=== PATIENT | male | born 1955 | race Caucasian/White ===

== ENCOUNTER 2019-02-20 10:59 | Emergency (ER) | payer MEDICAID ==
--- NOTE | 2019-02-20 11:50 | EDM.PDOC ---
ED HPI GENERAL MEDICAL PROBLEM - General Chief Complaint: General Stated Complaint: FELL DOWN, WEAK AND CAN'T WALK Time Seen by Provider: 02/20/19 11:05 Source of Information: Reports: Patient, Family - History of Present Illness INITIAL COMMENTS - FREE TEXT/NARRATIVE: Patient daughter state upon getting up approximately 1 hour prior to arrival of the bed phone trying to stand up the patient could not secondary to weakness and collapsed on the floor. Patient states his legs are not working and there does week. He has had this same type of episode twice for the first 1 occurred about in December while at the [place] in [place]. He has seen neurology before with an MRI of his head recently but does not know the results at this time. He has no other complaints at this time. He also states he has not taken his daily blood pressure medicines yet this morning but he has no end organ signs or symptoms or complaints. He denies any loss of consciousness numbness or tingling loss of bowel or bladder no chest pain nausea vomiting states he has not had anything to eat yet this morning as well Duration: Hour(s): Severity: Mild Context: Denies: Activity Associated Symptoms: Reports: No Other Symptoms, Weakness, Other (Weakness over the lower extremities denies any upper extremity or generalized weakness). Denies: Confusion, Chest Pain, Cough, cough w sputum, Diaphoresis, Fever/Chills , Headaches, Loss of Appetite, Nausea/Vomiting, Shortness of Breath, Syncope - Related Data Allergies Allergy/AdvReac Type Severity Reaction Status Date / Time Penicillins Allergy Cannot Verified 08/07/14 13:37 Remember Sulfa (Sulfonamide Allergy Cannot Verified 08/07/14 13:37 Antibiotics) Remember Home Meds: Home Meds . [Unable to Verify Home Med List] 08/07/14 [History] ED ROS GENERAL - Review of Systems Review Of Systems: See Below Constitutional: Reports: No Symptoms, Weakness. Denies: Fever, Chills, Malaise , Fatigue, Night Sweats, Diaphoresis, Decreased Appetite, Weight Loss HEENT: Reports: No Symptoms Respiratory: Reports: No Symptoms Cardiovascular: Reports: No Symptoms Endocrine: Reports: No Symptoms GI/Abdominal: Reports: No Symptoms. Denies: Bloody Stool, Hematemesis, Nausea, Vomiting : Reports: No Symptoms. Denies: Discharge Musculoskeletal: Denies: Back Pain, Muscle Pain, Muscle Stiffness Skin: Reports: No Symptoms Neurological: Reports: Difficulty Walking, Weakness, Gait Disturbance. Denies: No Symptoms, Confusion, Dizziness, Headache, Numbness, Syncope, Tingling Psychiatric: Reports: No Symptoms Hematologic/Lymphatic: Reports: No Symptoms Immunologic: Reports: No Symptoms ED EXAM, GENERAL - Physical Exam Exam: See Below Exam Limited By: No Limitations General Appearance: Alert, WD/WN, No Apparent Distress Eye Exam: Bilateral Eye: PERRL (EOMI was intact) Ears: Normal External Exam, Hearing Grossly Normal, Normal TMs Nose: Normal Inspection Throat/Mouth: Normal Inspection, Normal Lips, Normal Oropharynx, Normal Voice, No Airway Compromise Head: Atraumatic, Normocephalic Neck: Normal Inspection, Supple, Non-Tender, Full Range of Motion Respiratory/Chest: No Respiratory Distress, Lungs Clear, Normal Breath Sounds, No Accessory Muscle Use Cardiovascular: Normal Peripheral Pulses, Regular Rate, Rhythm, No Edema, No Gallop, No JVD GI/Abdominal: Normal Bowel Sounds, Soft, Non-Tender, No Organomegaly, No Distention, Pelvis Stable Back Exam: Full Range of Motion Extremities: Normal Inspection, Normal Range of Motion, Non-Tender, No Pedal Edema, Normal Capillary Refill, Other (Patient had bilateral 5/ 5 upper extremity lower extremity strength with full range of motion of all extremities patient with lower extremities was able to lift himself off the bed when pressing down for strength testing with lower extremities 2+ DTR normal dorsiflexion and plantar flexion). No: Pedal Edema Neurological: Alert, Oriented, CN II-XII Intact, Normal Cognition, Normal Reflexes, No Motor/Sensory Deficits Psychiatric: Normal Affect, Normal Mood Skin Exam: Warm, Dry, Intact, Normal Color, No Rash Course - Vital Signs Text/Narrative:: CBC BMP UA EKG was ordered lab work UA and EKG was all within normal limits EKG is normal sinus rhythm no acute findings patient was able to stand with assistance and walk to the bathroom to obtain UA Spoke with patient and family in regards to labs and need for follow-up daughter states has a neurology appointment 10 March they are both willing to get a prescription for a quad walker and are okay with being discharged home and follow up primary care provider - Orders/Labs/Meds Orders: Active Orders 24 hr Category Date Time Status EKG 12 Lead [EKG Documentation Completion] [RC] STAT Care 02/20/19 11:32 Active Naproxen [Naprosyn] Med 02/20/19 12:36 Active 500 mg PO Q12HR PRN Medication Orders Naproxen (Naprosyn) 500 mg PO Q12HR PRN PRN Reason: take daily chronic back pain Labs: Laboratory Tests 02/20/19 02/20/19 02/20/19 Range/Units 12:00 12:00 12:15 WBC 10.6 H (4.0-10.0) x10^3/uL RBC 4.71 (4.5-6.0) x10^6/uL Hgb 14.3 (14.0-18.0) g/dL Hct 41.5 (40.0-52.0) % MCV 88.1 (78.0-93.0) fL MCH 30.4 (26.0-32.0) pg MCHC 34.5 (32.0-36.0) g/dL RDW Coeff of [place] 13.1 (10.0-15.0) % Plt Count 168 (130-400) x10^3/uL Neut % (Auto) 71.5 (50.0-80.0) % Lymph % (Auto) 18.6 L (25.0-50.0) % [place] % (Auto) 9.1 (2.0-11.0) % Eos % (Auto) 0.5 (0.0-4.0) % Baso % (Auto) 0.3 (0.2-1.2) % Sodium 142 (136-145) mmol/L Potassium 3.5 (3.5-5.1) mmol/L Chloride 102 (98-107) mmol/L Carbon Dioxide 29 (21-32) mmol/L Anion Gap 14.5 (10-20) mmol/L BUN 16 (7-18) mg/dL Creatinine 0.8 (0.70-1.30) mg/dL Est Cr Clr Drug Dosing TNP Estimated GFR (MDRD) > 60 Glucose 122 H (74-106) mg/dL Calcium 9.0 (8.5-10.1) mg/dL Urine Color Dark yellow H (YELLOW) Urine Appearance Turbid H (CLEAR) Urine pH 6.5 (5.0-8.0) Ur Specific [place] 1.015 Urine Protein Negative (NEGATIVE) mg/dL Urine Glucose (UA) Negative (NEGATIVE) mg/dL Urine Ketones Negative (NEGATIVE) mg/dL Urine Occult Blood Trace-lysed H (NEGATIVE) Urine Nitrite Negative (NEGATIVE) Urine Bilirubin Negative (NEGATIVE) Urine Urobilinogen 0.2 (0.2) EU/dL Ur Leukocyte Esterase Moderate H (NEGATIVE) Urine RBC 0-5 (NOT SEEN) /HPF Urine WBC 20-30 H (NOT SEEN) /HPF Urine WBC Clumps Few Ur Squamous Epith Cells Rare (NEGATIVE) /HPF Urine Bacteria Few H (NEGATIVE) /HPF Urine Mucus Few H (NEGATIVE) /LPF Urine Yeast (Budding) Many Meds: Medications Generic Name Dose Route Start Last Admin Trade Name Freq PRN Reason Stop Dose Admin Naproxen 500 mg 02/20/19 12:36 Naprosyn PO Q12HR PRN take daily chronic back pain Departure - Departure Time of Disposition: 12:50 Disposition: Home, Self-Care 01 Condition: Fair Clinical Impression: Lower extremity weakness - Discharge Information *PRESCRIPTION DRUG MONITORING PROGRAM REVIEWED*: No *COPY OF PRESCRIPTION DRUG MONITORING REPORT IN PATIENT MARY ANNE: No Forms: ED Department Discharge - Problem List & Annotations (1) Lower extremity weakness SNOMED Code(s): 613546526 Code(s): R29.898 - [facility] SYMPTOMS AND SIGNS INVOLVING THE MUSCULOSKELETAL SYSTEM Status: Acute Current Visit: Yes - My Orders Last 24 Hours: My Active Orders 02/20/19 11:32 EKG 12 Lead [EKG Documentation Completion] [RC] STAT 02/20/19 12:36 Naproxen [Naprosyn] 500 mg PO Q12HR PRN - Assessment/Plan Last 24 Hours: My Active Orders 02/20/19 11:32 EKG 12 Lead [EKG Documentation Completion] [RC] STAT 02/20/19 12:36 Naproxen [Naprosyn] 500 mg PO Q12HR PRN
[2019-02-20 12:18] LABS: CHLORIDE,CL 102 mmol/L (98-107); SODIUM,NA 142 mmol/L (136-145)
[2019-02-20 12:19] LABS: ANION GAP 14.5 mmol/L (10-20)
[2019-02-20] MEDS ORDERED: Naproxen 500 MG Tab PO PRN (12:36)
[2019-02-20 16:39] VITALS: BP 137/78; PULSE 80
== END 2019-02-20 13:25 | disposition home or self-care (01) ==
LOC: VM.ED 10:59
DX: M62.81 Muscle weakness (generalized) (principal); Z88.0 Allergy status to penicillin; Z88.2 Allergy status to sulfonamides
CPT/HCPCS: 36415; 80048; 81001; 85025; 93005; 99285-25

== ENCOUNTER 2020-11-23 12:22 | Emergency (ER) | payer MEDICAID ==
[2020-11-23] MEDS ORDERED: Sodium Chloride 0.9% 10 ML Syringe FLUSH PRN (13:17)
--- NOTE | 2020-11-23 13:29 | EDM.PDOC ---
ED HPI GENERAL MEDICAL PROBLEM - General Chief Complaint: Neurological Problem Stated Complaint: FEVER AND NOT RESPONDING TO STAFF Time Seen by Provider: 11/23/20 12:45 Source of Information: Reports: Patient, Family - History of Present Illness INITIAL COMMENTS - FREE TEXT/NARRATIVE: Jamar is a 64 y/o male who is brought to the ER by his daughters for a fever and decreased mental status. He has a hx of Progressive Supranuclear Palsy and was diagnosed 2 years ago, however his daughters have been providing almost total care for him for the last 6 years. He was fine last night when he was put to bed, but his daughter found him this AM with the left side of his face swollen and both of his eyes quite swollen. He has an excessive amount of drooling noted to have happened through the night. He was given Benadryl and APAP at home for the eye swelling and the fever. He also complained of a headache and did not have much of an appetite this AM. His daughters also noted that his left lower leg seemed to be a bit reddened, but he also awoke with petechiae like rash to his lower legs and ankles that appeared this AM. He has not had a COVID vaccine to date. The last few days he as had more problems with incontinence and not being able to help himself with ADLs as much as he had been previously. - Related Data Allergies Allergy/AdvReac Type Severity Reaction Status Date / Time Penicillins Allergy Cannot Verified 08/07/14 13:37 Remember Sulfa (Sulfonamide Allergy Cannot Verified 08/07/14 13:37 Antibiotics) Remember Home Meds: Home Meds . [Unable to Verify Home Med List] 08/07/14 [History] Review of Systems - Review of Systems Review Of Systems: See Below Constitutional: Reports: Fever, Weakness Eyes: Reports: Other (Swellign around eyelids) Ears: Reports: No Symptoms Nose: Reports: No Symptoms Mouth/Throat: Reports: Other (INcreased drooling) Respiratory: Reports: No Symptoms Cardiovascular: Reports: No Symptoms GI/Abdominal: Reports: Decreased Appetite Genitourinary: Reports: Incontinence Skin: Reports: Rash (Erythema and rash to lower legs) Neurological: Reports: Confusion, Headache, Weakness ED EXAM, GENERAL - Physical Exam Exam: See Below (Adult male, appears older than stated age, lying quietly on ER cart. He will open eyes and answer a few questions, but he does look ill.) Eye Exam: Bilateral Eye: PERRL, Other (Eyelids are swollen) Ears: Normal External Exam, Normal Canal, Hearing Grossly Normal, Normal TMs Nose: Normal Inspection, Normal Mucosa Throat/Mouth: Normal Voice, Other (Tongue dry) Head: Atraumatic, Facial Swelling (left side of face more swollen than the right) Neck: Normal Inspection, Supple, Non-Tender Respiratory/Chest: No Respiratory Distress, Lungs Clear, Chest Non-Tender Cardiovascular: Normal Peripheral Pulses, Regular Rate, Rhythm, No Murmur GI/Abdominal: Normal Bowel Sounds, Soft, Non-Tender, No Distention (Male) Exam: Deferred Rectal (Males) Exam: Deferred Back Exam: Normal Inspection Extremities: Other (Note erythema to bilateral lower legs-L>R, also note petchiae like rash to both lower legs and feet. Left leg is more edeamtous than the right.) Neurological: Alert, CN II-XII Intact, Slow to Respond Psychiatric: Flat Affect Skin Exam: Dry, Intact Lymphatic: No Adenopathy #1 Interpretation EKG Date: 11/23/20 Time: 12:43 Rhythm: NSR Rate (Beats/Min): 82 [place]: Normal P-Wave: Present QRS: Normal ST-T: Normal QT: Prolonged Course - Vital Signs Text/Narrative:: 1246 The patient was seen by the [facility]. Labs, EKG, Head CT and IV fluids ordered. IV fluids started. 1335 Labs reviewed. Note WBC=11.9, no diff change; CMP K=3.3, CO2=33, BUN=22, Xppjqos=453, CRP=2.5, Lactic Acid=1.9; BC x 2 pending, COVID neg, TSH=2.84, ETOH=neg. Head CT ordered. Concerned about Meningitis as potential differential dx due to fever, mental status change, SANCHEZ, and rash on legs. 1415 [facility] contacted and case presented for transfer. 1430 Dr Quezada accepted the patient for transfer. Vancomycin 1gm IVPB and Cefipime 2gm IVP ordered. [facility] ALS transport to [place]. Patient remained stable until departure. CT results pending upon pt departure. CT films sent to [place]. Last Recorded V/S: Last Vital Signs Temp 36.7 C 11/23/20 14:32 Pulse 75 11/23/20 14:32 Resp 11 L 11/23/20 14:32 BP 113/61 11/23/20 14:32 Pulse Ox 97 11/23/20 14:32 - Orders/Labs/Meds Orders: Active Orders 24 hr Category Date Time Status EKG Documentation Completion [RC] STAT Care 11/23/20 13:18 Active CULTURE BLOOD [BC] Stat Lab 11/23/20 12:50 Received CULTURE BLOOD [BC] Stat Lab 11/23/20 13:35 Received Sodium Chloride 0.9% [Saline Flush] Med 11/23/20 13:17 Active 10 ml FLUSH ASDIRECTED PRN Vancomycin 1 gm Med 11/23/20 14:31 Ordered Sodium Chloride 0.9% [Normal Saline (AdvBag)] 250 ml IV STAT Blood Culture x2 Reflex Set [OM.PC] Stat Oth 11/23/20 13:18 Ordered Saline Lock Insert [OM.PC] Stat Oth 11/23/20 13:18 Ordered Medication Orders Vancomycin HCl 1 gm/ Sodium (Chloride) 250 mls @ 250 mls/hr IV STAT ONE Stop: 11/23/20 15:30 Sodium Chloride (Sodium Chloride 0.9% 10 Ml Syringe) 10 ml FLUSH ASDIRECTED PRN PRN Reason: Keep Vein Open Labs: Laboratory Tests 11/23/20 11/23/20 11/23/20 Range/Units 12:50 12:50 12:50 WBC 11.9 H (4.0-10.0) x10^3/uL RBC 4.69 (4.5-6.0) x10^6/uL Hgb 13.9 L (14.0-18.0) g/dL Hct 41.5 (40.0-52.0) % MCV 88.5 (78.0-93.0) fL MCH 29.6 (26.0-32.0) pg MCHC 33.5 (32.0-36.0) g/dL RDW Coeff of [place] 14.9 (10.0-15.0) % Plt Count 239 (130-400) x10^3/uL Neut % (Auto) 76.2 (50.0-80.0) % Lymph % (Auto) 14.4 L (25.0-50.0) % [place] % (Auto) 9.0 (2.0-11.0) % Eos % (Auto) 0.3 (0.0-4.0) % Baso % (Auto) 0.1 L (0.2-1.2) % PT 11.7 (9.9-12.5) SEC INR 1.0 L (2.0-3.5) APTT 27.3 (25.6-32.8) SEC Sodium 143 (136-145) mmol/L Potassium 3.3 L (3.5-5.1) mmol/L Chloride 102 (98-107) mmol/L Carbon Dioxide 33 H (21-32) mmol/L Anion Gap 11.3 (5-15) mmol/L BUN 22 H (7-18) mg/dL Creatinine 1.2 (0.70-1.30) mg/dL Est Cr Clr Drug Dosing 63.83 mL/min Estimated GFR (MDRD) > 60 Glucose 169 H (70-99) mg/dL Lactic Acid (0.4-2.0) mmol/L Calcium 8.9 (8.5-10.1) mg/dL Corrected Calcium 9.5 (8.5-10.1) mg/dL Magnesium 1.3 L (1.8-2.4) mg/dL Total Bilirubin 0.5 (0.2-1.0) mg/dL AST 32 (15-37) U/L ALT 22 (16-63) U/L Alkaline Phosphatase 97 (46-116) U/L C-Reactive Protein 2.5 H (<=0.9) mg/dL Total Protein 7.1 (6.4-8.2) g/dL Albumin 3.2 L (3.4-5.0) g/dL Globulin 3.9 Albumin/Globulin Ratio 0.82 Amylase 63 (25-115) U/L Lipase 93 (73-393) U/L TSH, Ultra Sensitive 2.840 (0.358-3.74) uIU/mL Urine Color (YELLOW) Urine Appearance (CLEAR) Urine pH (5.0-8.0) Ur Specific [place] Urine Protein (NEGATIVE) mg/dL Urine Glucose (UA) (NEGATIVE) mg/dL Urine Ketones (NEGATIVE) mg/dL Urine Occult Blood (NEGATIVE) Urine Nitrite (NEGATIVE) Urine Bilirubin (NEGATIVE) Urine Urobilinogen (0.2) EU/dL Ur Leukocyte Esterase (NEGATIVE) Urine RBC (NOT SEEN) /HPF Urine WBC (NOT SEEN) /HPF Urine Bacteria (NOT SEEN) /HPF Urine Mucus (NOT SEEN) /LPF Ethyl Alcohol < 3 (0-3) mg/dL SARS CoV-2 RNA Rapid GISELA (NEGATIVE) 11/23/20 11/23/20 11/23/20 Range/Units 12:50 13:35 13:35 WBC (4.0-10.0) x10^3/uL RBC (4.5-6.0) x10^6/uL Hgb (14.0-18.0) g/dL Hct (40.0-52.0) % MCV (78.0-93.0) fL MCH (26.0-32.0) pg MCHC (32.0-36.0) g/dL RDW Coeff of [place] (10.0-15.0) % Plt Count (130-400) x10^3/uL Neut % (Auto) (50.0-80.0) % Lymph % (Auto) (25.0-50.0) % [place] % (Auto) (2.0-11.0) % Eos % (Auto) (0.0-4.0) % Baso % (Auto) (0.2-1.2) % PT (9.9-12.5) SEC INR (2.0-3.5) APTT (25.6-32.8) SEC Sodium (136-145) mmol/L Potassium (3.5-5.1) mmol/L Chloride (98-107) mmol/L Carbon Dioxide (21-32) mmol/L Anion Gap (5-15) mmol/L BUN (7-18) mg/dL Creatinine (0.70-1.30) mg/dL Est Cr Clr Drug Dosing mL/min Estimated GFR (MDRD) Glucose (70-99) mg/dL Lactic Acid 1.9 (0.4-2.0) mmol/L Calcium (8.5-10.1) mg/dL Corrected Calcium (8.5-10.1) mg/dL Magnesium (1.8-2.4) mg/dL Total Bilirubin (0.2-1.0) mg/dL AST (15-37) U/L ALT (16-63) U/L Alkaline Phosphatase (46-116) U/L C-Reactive Protein (<=0.9) mg/dL Total Protein (6.4-8.2) g/dL Albumin (3.4-5.0) g/dL Globulin Albumin/Globulin Ratio Amylase (25-115) U/L Lipase (73-393) U/L TSH, Ultra Sensitive (0.358-3.74) uIU/mL Urine Color Yellow (YELLOW) Urine Appearance Slightly cloudy H (CLEAR) Urine pH 5.5 (5.0-8.0) Ur Specific [place] 1.025 Urine Protein 30 H (NEGATIVE) mg/dL Urine Glucose (UA) Negative (NEGATIVE) mg/dL Urine Ketones 15 H (NEGATIVE) mg/dL Urine Occult Blood Negative (NEGATIVE) Urine Nitrite Negative (NEGATIVE) Urine Bilirubin Small H (NEGATIVE) Urine Urobilinogen 1.0 (0.2) EU/dL Ur Leukocyte Esterase Negative (NEGATIVE) Urine RBC 0-5 (NOT SEEN) /HPF Urine WBC 0-5 (NOT SEEN) /HPF Urine Bacteria Occasional H (NOT SEEN) /HPF Urine Mucus Occasional H (NOT SEEN) /LPF Ethyl Alcohol (0-3) mg/dL SARS CoV-2 RNA Rapid GISELA Negative (NEGATIVE) Meds: Medications Generic Name Dose Route Start Last Admin Trade Name Freq PRN Reason Stop Dose Admin Vancomycin HCl 1 gm/ Sodium 250 mls @ 250 mls/hr 11/23/20 14:31 Chloride IV 11/23/20 15:30 STAT ONE Sodium Chloride 10 ml 11/23/20 13:17 Sodium Chloride 0.9% 10 Ml Syringe FLUSH ASDIRECTED PRN Keep Vein Open Discontinued Medications Generic Name Dose Route Start Last Admin Trade Name Freq PRN Reason Stop Dose Admin Cefepime HCl 2 gm 11/23/20 14:40 Cefepime 2 Gm Vial IVPUSH 11/23/20 14:41 STAT ONE Sodium Chloride 1,000 mls @ 999 mls/hr 11/23/20 13:37 11/23/20 14:30 Normal Saline IV 11/23/20 14:37 999 mls/hr ONETIME ONE Administration Cefepime HCl 1 gm/ Sodium 100 mls @ 200 mls/hr 11/23/20 14:31 Chloride IV 11/23/20 15:00 STAT ONE - Radiology Interpretation Free Text/Narrative:: CT Head WO=results pending on transfer-report and study sent to [place] Departure - Departure Time of Disposition: 14:30 Disposition: DC/Tfer to [facility] 02 Condition: Good Clinical Impression: Mental status, decreased, Facial swelling, Progressive supranuclear palsy Fever Qualifiers: Fever type: unspecified Qualified Code(s): R50.9 - Fever, unspecified Headache Qualifiers: Headache type: unspecified Headache chronicity pattern: unspecified pattern Intractability: intractable Qualified Code(s): R51.9 - Headache, unspecified - Discharge Information Referrals: Nicole Ley MD [Primary Care Provider] - Forms: ED Department Discharge, Interfacility Transfer EMTALA Sepsis Event Note (ED) - Focused Exam Vital Signs: Vital Signs Temp Pulse Resp BP Pulse Ox 11/23/20 14:32 36.7 C 75 11 L 113/61 97 11/23/20 12:30 36.6 C 84 15 143/75 H 97 - My Orders Last 24 Hours: My Active Orders 11/23/20 12:50 CULTURE BLOOD [BC] Stat 11/23/20 13:17 Sodium Chloride 0.9% [Saline Flush] 10 ml FLUSH ASDIRECTED PRN 11/23/20 13:18 EKG Documentation Completion [RC] STAT Blood Culture x2 Reflex Set [OM.PC] Stat Saline Lock Insert [OM.PC] Stat 11/23/20 13:35 CULTURE BLOOD [BC] Stat 11/23/20 14:31 Vancomycin 1 gm Sodium Chloride 0.9% [Normal Saline (AdvBag)] 250 ml IV STAT - Assessment/Plan Last 24 Hours: My Active Orders 11/23/20 12:50 CULTURE BLOOD [BC] Stat 11/23/20 13:17 Sodium Chloride 0.9% [Saline Flush] 10 ml FLUSH ASDIRECTED PRN 11/23/20 13:18 EKG Documentation Completion [RC] STAT Blood Culture x2 Reflex Set [OM.PC] Stat Saline Lock Insert [OM.PC] Stat 11/23/20 13:35 CULTURE BLOOD [BC] Stat 11/23/20 14:31 Vancomycin 1 gm Sodium Chloride 0.9% [Normal Saline (AdvBag)] 250 ml IV STAT Assessment:: 1)Fever 2)Headache 3)Petechial Rash 4)Hx Progressive Supranuclear Palsy Plan: -Transfer to [facility] ER to Dr Quezada via [facility]
[2020-11-23] MEDS ORDERED: Sodium Chloride 0.9% 1,000 ML IV ONE (13:37)
[2020-11-23 13:45] LABS: CHLORIDE,CL 102 mmol/L (98-107); SODIUM,NA 143 mmol/L (136-145)
[2020-11-23 13:50] LABS: PTT,PARTIAL THROMBOPLSTIN TIME 27.3 SEC (25.6-32.8)
--- NOTE | 2020-11-23 13:50 | CR ---
[id number] RAD/RAD Chest PA or AP 1V EXAM: RAD Chest PA or AP 1V INDICATION: FEVER. COMPARISON: October 2014. DISCUSSION/IMPRESSION: Cardiomediastinal silhouette is normal in size and contour. Subtle opacity projects over the left lung base. In the clinical setting of infection, this could represent developing pneumonia. Right lung is clear. No pleural effusion or pneumothorax. Reji Salas MD 11/23/20 [id number] Thank you for allowing us to participate in the care of your patient.
[2020-11-23 13:51] LABS: ANION GAP 11.3 mmol/L (5-15)
[2020-11-23] MEDS ORDERED: Cefepime 1 GM in Sodium Chloride 0.9% 100 ML IV ONE (14:31)
[2020-11-23 14:33] VITALS: BP 113/61; PULSE 75
[2020-11-23] MEDS ORDERED: Cefepime 2 GM Vial IVPUSH ONE (14:40)
--- NOTE | 2020-11-23 14:48 | CT ---
[id number] CT/CT Head WO IV EXAM: NONCONTRAST HEAD CT INDICATION: FEVER, FACIAL SWELLING, HEADACHE, DECREASED LOSS OF COMPARISON: February 13, 2015. DISCUSSION: Left facial soft tissue swelling. The ventricles and sulci are normal in size and configuration. Mild multifocal white matter hypoattenuation is nonspecific, but generally ascribed to chronic small vessel ischemia. Left basal ganglia lacunar infarcts. No mass effect or midline shift. No acute hemorrhage or extra-axial fluid collection. No acute territorial infarct is identified. Mild paranasal sinus mucosal thickening. IMPRESSION: 1. No acute intracranial findings. 2. Left facial soft tissue swelling. Espinoza Gustafson MD 11/23/20 [id number] Thank you for allowing us to participate in the care of your patient.
== END 2020-11-23 15:44 | disposition short-term general hospital (02) ==
LOC: VM.ED 12:22
DX: G23.1 Progressive supranuclear ophthalmoplegia [Steele-Richardson-Olszewski] (principal); R50.9 Fever, unspecified; Z20.822 Contact with and (suspected) exposure to COVID-19; Z88.0 Allergy status to penicillin; Z88.2 Allergy status to sulfonamides
CPT/HCPCS: 36415; 70450; 71045; 80053; 80307; 81001; 82150; 83605; 83690; 83735; 84443; 85025; 85610; 85730; 86140; 87040; 93005; 93010; 96365; 96375; 99284; 99285-25; J0692; J3370; J7030; J7050; U0002